=== PATIENT | female | born 1995 | race Caucasian/White ===

== ENCOUNTER 2016-12-12 22:37 | Observation (INO) | payer OTHER ==
[2016-12-12] MEDS ORDERED: ASPIRIN 81 MG TABLET, CHEWABLE PO ONE (22:39)
[2016-12-12] MEDS ORDERED: DILTIAZEM HCL INJ 25 MG/5 ML VIAL IV ONE (22:49)
[2016-12-12] MEDS ORDERED: NORMAL SALINE 1000 ML 1,000 ML IV ONE (23:06)
--- NOTE | 2016-12-12 23:06 | ER Document Report ---
ED General - General Mode of Arrival: Medic Information source: Patient TRAVEL OUTSIDE OF THE [place] IN LAST 30 DAYS: No - HPI Patient complains to provider of: Heart Racing Onset: This evening Onset/Duration: Sudden, Persistent Associated symptoms: Diarrhea, Nausea, Other - "bloating". denies: Vomiting <SANDRA STARKS - Last Filed: 12/13/16 00:58> <ANGEL MCCOY - Last Filed: 12/13/16 07:16> - General Chief Complaint: Palpitations Stated Complaint: PALPITATIONS Notes: Patient is a 21-year-old female presenting to the emergency department via EMS concerned of heart racing onset this evening approximately 1945 when she laid down in bed. Patient states that she had previously eaten pizza for dinner, and felt like she had acid reflux. Patient also states that she began feeling hot when she laid down for bed, and subsequently began having diarrhea at approximately 2130. Patient states that she feels nauseous, bloated, and has back pain, which is her baseline due to degenerative disc disease. Patient has been on medication for hypertension for approximately 1 year (since giving ), and denies any recent missed doses. Patient states that she was given adenosine en route, which helped slow down her heart slightly, but she can still feel it pounding. (SANDRA STARKS) - Related Data Allergies/Adverse Reactions: steroid injections Allergy (Uncoded 01/19/16 16:08) Past Medical History - General Information source: Patient - Social History Smoking Status: Unknown if Ever Smoked Lives with: Family Family History: Reviewed & Not Pertinent - Past Medical History Cardiac Medical History: Reports: Hx Hypertension Endocrine Medical History: Reports: Hx Diabetes Mellitus Type 2 - Gestational DM Musculoskeltal Medical History: Reports Other - Degenerative disc disease <SANDRA STARKS - Last Filed: 12/13/16 00:58> Review of Systems - Review of Systems Constitutional: No symptoms reported EENT: No symptoms reported Cardiovascular: See HPI, Heart racing Respiratory: No symptoms reported Gastrointestinal: See HPI, Diarrhea, Nausea, Other - "Bloating". denies: Vomiting Genitourinary: No symptoms reported Female Genitourinary: No symptoms reported Musculoskeletal: No symptoms reported Skin: No symptoms reported Hematologic/Lymphatic: No symptoms reported Neurological/Psychological: No symptoms reported -: Yes All other systems reviewed and negative <SANDRA STARKS - Last Filed: 12/13/16 00:58> Physical Exam - Vital signs Interpretation: Tachycardic - General General appearance: Alert - HEENT Head: Normocephalic, Atraumatic Eyes: Normal Pupils: PERRL Mucous membranes: Dry - Respiratory Respiratory status: No respiratory distress Chest status: Nontender Breath sounds: Normal Chest palpation: Normal - Cardiovascular Rhythm: Tachycardia Heart sounds: Normal auscultation Murmur: No - Abdominal Distension: No distension Bowel sounds: Hyperactive Tenderness: Nontender Organomegaly: No organomegaly - Back Back: Normal, Nontender - Extremities General upper extremity: Normal inspection, Nontender, Normal color, Normal ROM , Normal temperature General lower extremity: Normal inspection, Nontender, Normal color, Normal ROM , Normal temperature - Neurological Neuro grossly intact: Yes Cognition: Normal [place] Coma Scale Eye Opening: Spontaneous [place] Coma Scale Verbal: Oriented [place] Coma Scale Motor: Obeys Commands Marcos Coma Scale Total: 15 Speech: Normal - Psychological Associated symptoms: Normal affect, Normal mood - Skin Skin Temperature: Warm Skin Moisture: Dry Skin Color: Normal <SANDRA STARKS - Last Filed: 12/13/16 00:58> Course - Laboratory Result Diagrams: 12/12/16 23:00 12/12/16 23:00 <SANDRA STARKS - Last Filed: 12/13/16 00:58> - Laboratory Result Diagrams: 12/12/16 23:00 12/12/16 23:00 - Diagnostic Test Radiology reviewed: Reports reviewed - EKG Interpretation by Me EKG shows normal: Sinus rhythm Rate: Normal Rhythm: NSR <ANGEL MCCOY - Last Filed: 12/13/16 07:16> - Re-evaluation Re-evalutation: 12/13/16 06:08 Patient is a 21-year-old female who comes in with diarrhea. with similar symptoms. Patient has no abdominal pain. Patient initially had a heart rate of 190 for EMS. Was given adenosine which brought her heart rate down to 140s 150s. The patient states still her heart rate is in the 110s; however, when she sits up her heart rate jumps to 140 and states that she feels palpitations. Patient is currently on nifedipine for hypertension. Patient was discussed with Dr. Silverio who recommended the patient be started on metoprolol 25 twice a day. Recommended the patient follow-up in the office. Patient is packing her house today and is moving to [place] tomorrow. She is not comfortable going home with the medication and states that she has taken labetalol in the past which give her a headache. Given the patient has been persistently Tachycardic in the emergency department, the plan will be to give her by mouth metoprolol and admit her for observation to ensure that her symptoms fully resolved. Of note, no further diarrhea. (ANGEL MCCOY) - Vital Signs Vital signs: Temp Pulse Resp BP Pulse Ox 16 122/79 98 12/13/16 05:31 12/13/16 05:31 12/13/16 05:31 - Laboratory Laboratory results interpreted by me: 12/12/16 12/12/16 12/12/16 23:00 23:00 23:00 WBC 14.6 H Seg Neutrophils % 88.6 H Lymphocytes % 7.2 L Monocytes % 2.9 L Absolute Neutrophils 13.0 H Glucose 133 H TSH Urine Ketones 20 H 12/13/16 05:27 WBC Seg Neutrophils % Lymphocytes % Monocytes % Absolute Neutrophils Glucose TSH 0.29 L Urine Ketones Critical Care Note - Critical Care Note Total time excluding time spent on procedures (mins): 120 - evaluation and management of patient with diarrhea, persistent tachycardia, consultation with cardiology, coordination of admission, multiple re-evaluations, counseling of patient <ANGEL MCCOY - Last Filed: 12/13/16 07:16> Discharge <SANDRA STARKS - Last Filed: 12/13/16 00:58> - Discharge Admitting Provider: Sandra Lewis <ANGEL MCCOY - Last Filed: 12/13/16 07:16> - Discharge Clinical Impression: Dehydration, persistent tachycardia Diarrhea Qualifiers: Diarrhea type: unspecified type Qualified Code(s): R19.7 - Diarrhea, unspecified Condition: Stable Disposition: ADMITTED INPATIENT Instructions: Diarrhea, Nonspecific ([facility]), Dehydration ([facility]) Scribe Attestation: 12/13/16 07:15 I personally performed the services described in the documentation, reviewed and edited the documentation which was dictated to the scribe in my presence, and it accurately records my words and actions. (ANGEL MCCOY) Scribe Documentation - Scribe Written by Scribe:: Sandra Starks 12/12/2016 2306 acting as scribe for :: Willie <SANDRA STARKS - Last Filed: 12/13/16 00:58>
[2016-12-12] MEDS ORDERED: ONDANSETRON HCL INJ/PF 4 MG/2 ML SDV IV ONE (23:15)
[2016-12-12 23:22] LABS: ABSOLUTE EOSINOPHILS # (AUTO) 0.2 10^3/uL (0.0-0.6); ABSOLUTE LYMPHOCYTES (AUTO) 1.1 10^3/uL (0.5-4.7); ABSOLUTE MONOCYTES (AUTO) 0.4 10^3/uL (0.1-1.4); BASOPHILS % (AUTO) 0.3 % (0-2); HEMATOCRIT 43.6 % (36.0-47.0); HGB HCT DIFFERENCE 1.4; LYMPHOCYTES % (AUTO) 7.2 % (13-45); MEAN CORPUSCULAR HEMOGLOBIN 29.7 pg (27.0-33.4); MEAN CORPUSCULAR HGB CONC 34.3 g/dL (32.0-36.0); MEAN CORPUSCULAR VOLUME 87 fl (80-97); MONOCYTES % (AUTO) 2.9 % (3-13); RED BLOOD COUNT 5.03 10^6/uL (3.72-5.28); RED CELL DISTRIBUTION WIDTH 13.2 % (11.5-14.0); SEGMENTED NEUTROPHILS % (AUTO) 88.6 % (42-78); WHITE BLOOD COUNT 14.6 10^3/uL (4.0-10.5)
[2016-12-12 23:50] LABS: BLOOD UREA NITROGEN 11 mg/dL (7-20); CALCIUM 9.3 mg/dL (8.4-10.2); CREATININE RESULT 0.63 mg/dL (0.52-1.25); GLUCOSE 133 mg/dL (75-110)
[2016-12-12 23:51] LABS: ALANINE AMINOTRANSFERASE 18 U/L (9-52); ALBUMIN 4.4 g/dL (3.5-5.0); ALKALINE PHOSPHATASE 65 U/L (38-126); ANION GAP 15 (5-19); ASPARTATE AMINO TRANSFERASE 22 U/L (14-36); BILIRUBIN,TOTAL 0.8 mg/dL (0.2-1.3); CARBON DIOXIDE 22 mmol/L (22-30); CHLORIDE 105 mmol/L (98-107); CREATINE KINASE 73 U/L (30-135); POTASSIUM 3.7 mmol/L (3.6-5.0); SODIUM 141.5 mmol/L (137-145); TOTAL PROTEIN 7.6 g/dL (6.3-8.2)
[2016-12-13 00:06] LABS: CREATINE KINASE MB < 0.22 ng/mL (<4.55); TROPONIN I < 0.012 ng/mL
[2016-12-13] MEDS ORDERED: LOPERAMIDE HCL 2 MG CAPSULE PO ONE (00:33)
[2016-12-13] MEDS ORDERED: RINGERS SOLUTION,LACTATED 1,000 ML IV ONE ×3 (00:33→02:44)
[2016-12-13 01:22] LABS: APPEARANCE,URINE CLEAR; BILIRUBIN,URINE NEGATIVE (NEGATIVE); GLUCOSE, URINE NEGATIVE (NEGATIVE); KETONES,URINE 20 mg/dL (NEGATIVE); LEUKOCYTE ESTERASE,URINE NEGATIVE (NEGATIVE); NITRITE,URINE NEGATIVE (NEGATIVE); PROTEIN,URINE NEGATIVE (NEGATIVE); URINE SPECIFIC GRAVITY 1.012; UROBILINOGEN,URINE NEGATIVE mg/dL (<2.0)
[2016-12-13] MEDS ORDERED: ONDANSETRON ODT 4 MG TAB (6 TAB/DSPK) PO PRN (03:48)
[2016-12-13] MEDS ORDERED: DILTIAZEM HCL INJ 25 MG/5 ML VIAL IV ONE (04:34)
[2016-12-13] MEDS ORDERED: METOPROLOL SUCCINATE 25 MG TAB.SR.24H PO ONE (06:03)
[2016-12-13] MEDS ORDERED: ACETAMINOPHEN 325 MG TABLET PO PRN (08:31)
[2016-12-13] MEDS ORDERED: 1/2 NORMAL SALINE 1,000 ML IV PRN (08:31)
[2016-12-13] MEDS ORDERED: ONDANSETRON HCL INJ/PF 4 MG/2 ML SDV IV PRN (08:31)
[2016-12-13 09:32] LABS: FREE T3 3.78 pg/mL (2.77-5.27)
[2016-12-13 09:38] LABS: MAGNESIUM 1.2 mg/dL (1.6-2.3)
[2016-12-13] MEDS ORDERED: HYDROCORTISONE SOD SUCCINATE INJ/PF 100 MG/2 ML SDV IV SCH (10:00)
[2016-12-13] MEDS: CEFTRIAXONE 1 GM/D5W RTU 50 ML IV SCH (10:06)
[2016-12-13] MEDS: MAGNESIUM SULFATE/D5W 100 ML IV SCH ×2 (10:49→13:41)
[2016-12-13] MEDS: PROPRANOLOL HCL 20 MG TABLET PO SCH ×3 (13:40→23:57)
[2016-12-13] MEDS ORDERED: MAGNESIUM SULFATE/D5W 1 GM/100 ML RTUPB IV ONE (15:00)
--- NOTE | 2016-12-13 18:17 | PDOC H&P ---
History of Present Illness Admission Date/PCP: 12/13/16 08:32 Patient complains of: Palpitations History of Present Illness: KATHLEEN KERN is a 21 year old female presents to the emergency department from home with several day history of palpitations and generalized weakness. She carries a diagnosis of hypertension that occurred 11 months ago with the of her child, at that time she was actually bradycardic limiting the medications that could be used in treatment of her blood pressure. She has been on nifedipine since. She states since yesterday she's not been feeling well after eating pizza with her experiencing diarrhea 1 and some nausea and vomiting. He was seen in the emergency department with similar symptoms and diagnosed with food poisoning and given IV fluids. Evaluation in the emergency department showed heart rate initially in the 180s, she was given Adenocard escalating doses of 6-6-12 that finally brought her heart rate down into the 150s. It was a clear cut sinus tachycardia on the monitor. She also received 5 L of normal saline. She was also given Cardizem 5 mg IV, and Toprol 25 mg oral. With the persistent tachycardia we were asked to admit for further evaluation and management. Over the course of the last week she has complained of flulike symptoms with sinus congestion, low-grade temperatures of 99.4, sore scratchy throat and was seen by her PCP and given Flonase but did not take any davr-[id number]-ihaxfic decongestants and takes no herbal remedies. Interestingly she reports being quite active and her Fit Bit wearable device has been recording tachycardia into the 1 teens for about a week now. She has noted over the course of the last month her heart pounding in the middle of the night. She also reports hot and cold intolerance, abnormal hair loss, hives when she takes a hot shower, occasional skin flushing, irregular bowels, irregular menses, and random facial flushing. She reports her weight has been stable. She also reports that her mother and sister both take atenolol for "palpitations". To her knowledge no one's been diagnosed with cardiac dysrhythmias including Gpbbh-Xkljygmki-Bgmhn or PSVT. She denies chest pain, orthopnea, PND, dizziness, headache, vision changes, tinnitus, numbness or tingling, unilateral weakness, abdominal pain, postural dizziness. Past Medical History Cardiac Medical History: Reports: Hypertension - Pulmonary Medical History: Reports: None Endocrine Medical History: Reports: Diabetes Mellitus Type 2 - Gestational DM Musculoskeltal Medical History: Reports: Other - Degenerative disc disease Social History Information Source: Patient Lives with: Family Smoking Status: Never Smoker Frequency of Alcohol Use: Rare Hx Recreational Drug Use: No Hx Prescription Drug Abuse: No - Advance Directive Resuscitation Status: Full Code Family History Family History: DM - Mother, Other - Palpitations. denies: Thyroid Disfunction Parental Family History Reviewed: Yes Children Family History Reviewed: Yes Sibling(s) Family History Reviewed.: Yes Medication/Allergy Home Medications: Fluticasone Propionate [Flonase Nasal [place] 50 Mcg/[place] 16 gm] 1 spray NASL BID 12/13/16 Nifedipine [Nifedipine ER] 30 mg PO DAILY 12/13/16 Norgestrel-Ethinyl Estradiol [Cryselle-28 Tablet] 1 tab PO DAILY 12/13/16 Allergies/Adverse Reactions: steroid injections Allergy (Uncoded 01/19/16 16:08) Review of Systems Constitutional: PRESENT: fever(s). ABSENT: chills, headache(s), night sweats, weight gain, weight loss Eyes: ABSENT: visual disturbances Ears: ABSENT: hearing changes Cardiovascular: PRESENT: palpitations. ABSENT: chest pain, dyspnea on exertion , edema, orthropnea Respiratory: ABSENT: cough, hemoptysis Gastrointestinal: PRESENT: diarrhea, nausea. ABSENT: abdominal pain, constipation, hematemesis, hematochezia, vomiting Genitourinary: ABSENT: dysuria, hematuria Musculoskeletal: ABSENT: joint swelling Integumentary: ABSENT: pruritus, rash, wounds Neurological: ABSENT: abnormal gait, abnormal speech, confusion, dizziness, focal weakness, syncope Psychiatric: ABSENT: anxiety, depression Endocrine: PRESENT: cold intolerance, flushing, heat intolerance, menstrual abnormalities. ABSENT: polydipsia, polyuria Hematologic/Lymphatic: ABSENT: easy bleeding, easy bruising Physical Exam Vital Signs: Temp Pulse Resp BP Pulse Ox 98.1 F 76 14 102/59 L 100 12/13/16 15:26 12/13/16 15:26 12/13/16 15:26 12/13/16 15:26 12/13/16 15:26 PHYSICAL EXAM GENERAL: NAD; well developed, well nourished; no obese; alert and oriented to person, place, time, situation HEENT: normocephalic, atraumatic; EOMI, PERRLA, no conjunctival injection, no scleral icterus; oral mucosa moist, normal dentition; neck supple, no LAD, normal ROM; thyroid nonpalpable; mild tenderness to palpation over the right frontal sinus RESPIRATORY: no accessory muscle use, no increased WOB, good air entry bilaterally; no wheezes, rales, rhonchi; no inspiratory crackles CARDIO: no JVD; RRR; no systolic murmur; tachycardia during my exam ventricular rate was in the 120s sustained VASCULAR: no carotid bruit; no abdominal bruit; no pallor; 2+ radial, DP pulse ; normal capillary refill GI: soft; nondistended; normal bowel sounds; no hepato spleno megaly; no rebound, rigidity, guarding : normal external genitalia; rectal deferred NEURO: normal patella reflexes; normal sensation; normal motor function; no gait abnls; no dysarthria; no nystagmus; tongue protrudes midline; normal finger to nose; able to cross midline with finger to ear MSK: 5/5 strength; normal ROM hips; ambulatory without assistance; no tenderness EXTREMITIES: no calf tender; no palpable cords in calf; no clubbing, cyanosis , pedal edema PSYCH: normal affect, normal mood SKIN: warm; moist; no petechiae; no telengectasias; no jaundice; no rash Results Laboratory Results: Labs reviewed, TSH on the low side but free T4 and free T3 both normal. Cardiac enzymes negative. Stool studies negative. CBC shows mild leukocytosis , 89% segs. Magnesium very low at 1.2, phosphorus mildly low at 2.0 Impressions: Chest X-Ray 12/12/16 22:40 IMPRESSION: NO ACUTE RADIOGRAPHIC FINDING IN THE CHEST. Chest/Abdomen CTA 12/13/16 04:36 IMPRESSION: NORMAL CTA OF THE CHEST. NO PULMONARY EMBOLI. Assessment & Plan - Diagnosis (1) Tachycardia Is this a current diagnosis for this admission?: YesPlan: Unclear etiology. Possibly hereditary component given the patient's familial history. Possibly related to the underlying infection. Will start her on propranolol 4 times daily and then make decisions about beta ivone going forward. Hold her nifedipine that she usually takes for her hypertension. (2) Subclinical hypothyroidism Is this a current diagnosis for this admission?: YesPlan: TSH is on the low side but with normal T3 and T4 may just be related to the acute infection. Recommend follow-up TSH once the infection clears in 4-6 weeks. (3) Hypomagnesemia Is this a current diagnosis for this admission?: YesPlan: Possibly related to the brief diarrheal illness. Quite possibly congestive leading to some of her tachycardia, will aggressively replenish and follow up in the morning. (4) Acute sinusitis Qualifiers: Sinusitis location: frontal Recurrence: not specified as recurrent Qualified Code(s): J01.10 - Acute frontal sinusitis, unspecified Is this a current diagnosis for this admission?: YesPlan: Start empiric Rocephin and monitor for effect. Consider course of Cipro at discharge. - Time Time Spent: Greater than 70 Minutes Medications reviewed and adjusted accordingly: Yes Anticipated discharge: Home Within: within 24 hours
--- NOTE | 2016-12-13 19:34 | EKG REPORT ---
SEVERITY:- OTHERWISE NORMAL ECG - SINUS TACHYCARDIA : Confirmed by: Yefri Reyez 13-Dec-2016 19:33:19
[2016-12-14] MEDS: PROPRANOLOL HCL 20 MG TABLET PO SCH (05:51)
[2016-12-14 06:33] LABS: ABSOLUTE EOSINOPHILS # (AUTO) 0.1 10^3/uL (0.0-0.6); ABSOLUTE LYMPHOCYTES (AUTO) 1.4 10^3/uL (0.5-4.7); ABSOLUTE MONOCYTES (AUTO) 0.5 10^3/uL (0.1-1.4); ABSOLUTE NEUT (AUTO) 1.9 10^3/uL (1.7-8.2); BASOPHILS % (AUTO) 0.7 % (0-2); EOSINOPHILS % (AUTO) 1.4 % (0-6); HEMATOCRIT 34.3 % (36.0-47.0); LYMPHOCYTES % (AUTO) 36.3 % (13-45); MEAN CORPUSCULAR HEMOGLOBIN 30.4 pg (27.0-33.4); MEAN CORPUSCULAR HGB CONC 35.1 g/dL (32.0-36.0); MEAN CORPUSCULAR VOLUME 87 fl (80-97); MONOCYTES % (AUTO) 12.4 % (3-13); RED BLOOD COUNT 3.97 10^6/uL (3.72-5.28); RED CELL DISTRIBUTION WIDTH 12.8 % (11.5-14.0); SEGMENTED NEUTROPHILS % (AUTO) 49.2 % (42-78); WHITE BLOOD COUNT 3.8 10^3/uL (4.0-10.5)
[2016-12-14 06:35] LABS: PHOSPHORUS 2.7 mg/dL (2.5-4.5)
[2016-12-14 06:39] LABS: HEMOGLOBIN 12.1 g/dL (12.0-15.5)
[2016-12-14 06:52] LABS: MAGNESIUM 2.6 mg/dL (1.6-2.3)
[2016-12-14] MEDS: CEFTRIAXONE 1 GM/D5W RTU 50 ML IV SCH (10:36)
[2016-12-14 11:48] VITALS: BP 115/68
--- NOTE | 2016-12-14 14:10 | PDOC DISCHARGE SUMMARY ---
General - Admit/Disc Date/PCP Admission Date/Primary Care Provider: 12/13/16 08:32 Discharge Date: 12/14/16 - Discharge Diagnosis (1) Tachycardia Is this a current diagnosis for this admission?: YesSummary: Unclear etiology. Possibly hereditary component given the patient's familial history. Possibly related to the underlying infection. stabilized on propranolol 4 times daily and since her family members are well controrlled on atenolol will make this change for her going forward. Hold her nifedipine that she usually takes for her hypertension. (2) Subclinical hypothyroidism Is this a current diagnosis for this admission?: YesSummary: TSH is on the low side but with normal T3 and T4 may just be related to the acute infection. Recommend follow-up TSH once the infection clears in 4-6 weeks. (3) Hypomagnesemia Is this a current diagnosis for this admission?: YesSummary: Possibly related to the brief diarrheal illness. Quite possibly congestive leading to some of her tachycardia, aggressively replenished and instructed to have this followed up with her PCP. (4) Acute sinusitis Is this a current diagnosis for this admission?: YesSummary: possibly trigger for the tacharrhythmia; will treat with 7d of cipro and instructed to avoid pseudoephedrine in all forms, ok to use ocean mist to help clear her sinuses. - Additional Information Resuscitation Status: Full Code Discharge Activity: Activity As Tolerated, Balance Activity w/Rest Home Medications: Fluticasone Propionate [Flonase Nasal [place] 50 Mcg/[place] 16 gm] 1 spray NASL BID 12/13/16 Norgestrel-Ethinyl Estradiol [Cryselle-28 Tablet] 1 tab PO DAILY 12/13/16 Acetaminophen [Tylenol 325 mg Tablet] 650 mg PO Q4HP PRN tablet 12/14/16 Atenolol 50 mg PO DAILY #30 tablet 12/14/16 Ciprofloxacin HCl [Cipro 500 mg Tablet] 500 mg PO BID #14 tablet 12/14/16 History of Present Illness Patient complains of: palpitations History of Present Illness: KATHLEEN KERN is a 21 year old female presents to the emergency department from home with several day history of palpitations and generalized weakness. She carries a diagnosis of hypertension that occurred 11 months ago with the of her child, at that time she was actually bradycardic limiting the medications that could be used in treatment of her blood pressure. She has been on nifedipine since. She states since yesterday she's not been feeling well after eating pizza with her experiencing diarrhea 1 and some nausea and vomiting. He was seen in the emergency department with similar symptoms and diagnosed with food poisoning and given IV fluids. Evaluation in the emergency department showed heart rate initially in the 180s, she was given Adenocard escalating doses of 6-6-12 that finally brought her heart rate down into the 150s. It was a clear cut sinus tachycardia on the monitor. She also received 5 L of normal saline. She was also given Cardizem 5 mg IV, and Toprol 25 mg oral. With the persistent tachycardia we were asked to admit for further evaluation and management. Over the course of the last week she has complained of flulike symptoms with sinus congestion, low-grade temperatures of 99.4, sore scratchy throat and was seen by her PCP and given Flonase but did not take any gawq-bbd-vyabwzy decongestants and takes no herbal remedies. Interestingly she reports being quite active and her Fit Bit wearable device has been recording tachycardia into the 1 teens for about a week now. She has noted over the course of the last month her heart pounding in the middle of the night. She also reports hot and cold intolerance, abnormal hair loss, hives when she takes a hot shower, occasional skin flushing, irregular bowels, irregular menses, and random facial flushing. She reports her weight has been stable. She also reports that her mother and sister both take atenolol for "palpitations". To her knowledge no one's been diagnosed with cardiac dysrhythmias including Ijynw-Xvpawzvwl-Njpvg or PSVT. She denies chest pain, orthopnea, PND, dizziness, headache, vision changes, tinnitus, numbness or tingling, unilateral weakness, abdominal pain, postural dizziness. Hospital Course Hospital Course: screened for thyroid disease but her T3 and T4 were normal. she was started on propranolol with good results in her HR. multiple bags of IVFs later her volume status improved. she was started empirically on rocephin with good improvement in her sinus infection and so will continue on cipro at home for another 7d. her HR is now maintained in the 70's and her BP is stable so she is stable for d /c home. she is to f/u with her PCP in the next week and return to the ED for any worseing in her condition. Physical Exam Vital Signs: Temp Pulse Resp BP Pulse Ox 98.4 F 75 20 115/68 100 12/14/16 11:44 12/14/16 11:44 12/14/16 11:44 12/14/16 11:44 12/14/16 11:44 Intake & Output 12/13/16 12/14/16 12/15/16 06:59 06:59 07:59 Intake Total 1900 Output Total 0 Balance 1900 PHYSICAL EXAM GENERAL: NAD; well developed, well nourished; no obese; alert and oriented to person, place, time, situation HEENT: normocephalic, atraumatic; EOMI, PERRLA, no conjunctival injection, no scleral icterus; oral mucosa moist, neck supple, no LAD, normal ROM; thyroid nonpalpable; mild tenderness to palpation over the right frontal sinus RESPIRATORY: no accessory muscle use, no increased WOB, good air entry bilaterally; no wheezes, rales, rhonchi; no inspiratory crackles CARDIO: no JVD; RRR; no systolic murmur; no tachycardia VASCULAR: no carotid bruit; no abdominal bruit; no pallor; 2+ radial, DP pulse ; normal capillary refill GI: soft; nondistended; normal bowel sounds; no hepato spleno megaly; no rebound, rigidity, guarding NEURO: normal patella reflexes; normal sensation; normal motor function MSK: 5/5 strength; normal ROM hips; ambulatory without assistance; no tenderness EXTREMITIES: no calf tender; no palpable cords in calf; no clubbing, cyanosis , pedal edema PSYCH: normal affect, normal mood SKIN: warm; moist; no petechiae; no telengectasias; no jaundice; no rash Results Laboratory Results: 12/14/16 05:20 12/14/16 12/14/16 05:20 05:20 WBC 3.8 L RBC 3.97 Hgb 12.1 D Hct 34.3 L MCV 87 MCH 30.4 MCHC 35.1 RDW 12.8 Plt Count 161 Seg Neutrophils % 49.2 Lymphocytes % 36.3 Monocytes % 12.4 Eosinophils % 1.4 Basophils % 0.7 Absolute Neutrophils 1.9 Absolute Lymphocytes 1.4 Absolute Monocytes 0.5 Absolute Eosinophils 0.1 Absolute Basophils 0.0 Phosphorus 2.7 Magnesium 2.6 H D Impressions: Chest X-Ray 12/12/16 22:40 IMPRESSION: NO ACUTE RADIOGRAPHIC FINDING IN THE CHEST. Chest/Abdomen CTA 12/13/16 04:36 IMPRESSION: NORMAL CTA OF THE CHEST. NO PULMONARY EMBOLI. Qualifiers PATEINT BEING DISCHARGED WITH ANY OF THE FOLLOWING DIAGNOSIS?: No VTE patient discharged on overlapping Therapy?: No Plan Discharge Plan: d/c home Time Spent: Greater than 30 Minutes
== END 2016-12-14 12:28 | disposition home or self-care (01) ==
LOC: ER 22:37 → EH 12-13 08:32 → INTOOBSV 12-13 08:32 → EH 12-13 08:44 → UNDOADMIN 12-13 08:44 → 4N 12-13 12:17
PROVIDERS: ADMIT Internal Medicine; ATTEND Internal Medicine
PROC: 3E033GC Introduction of Other Therapeutic Substance into Peripheral Vein, Percutaneous Approach (ICD-10-PCS; principal; 2016-12-12)
PROC: 3E033GC Introduction of Other Therapeutic Substance into Peripheral Vein, Percutaneous Approach (ICD-10-PCS; 2016-12-12)
PROC: 3E033GC Introduction of Other Therapeutic Substance into Peripheral Vein, Percutaneous Approach (ICD-10-PCS; 2016-12-12)
PROC: 3E0337Z Introduction of Electrolytic and Water Balance Substance into Peripheral Vein, Percutaneous Approach (ICD-10-PCS; 2016-12-12)
DX: E02 Subclinical iodine-deficiency hypothyroidism (principal); E83.42 Hypomagnesemia; J01.90 Acute sinusitis, unspecified; R19.7 Diarrhea, unspecified; E86.0 Dehydration
CPT/HCPCS: 93005; 99291; 99292; 96361; 96374; 96375; 36415 ×3; 87040; 87045; 87070; 89055; 84439; 87205; 82553; 87880; 82550; 83735 ×2; 84100 ×2; 84443; 84703; 85025 ×2; 82272; 80053; 81001; 84484 ×2; 84481; 83036; 87493 ×2; 71010; 71275; 93010; G0378 ×3; J1720; J3490 ×2; J3475; J2405; J7030; J7120; J0696 ×2